=== PATIENT | female | born 1985 | race Caucasian/White ===

== ENCOUNTER 2020-06-26 18:47 | Outpatient (CLI) | payer OTHER | END 2020-06-27 11:12 | disposition home or self-care (01) | LOC: OBS/DEL 18:47 → OFIC 805 18:47 → OBS/DEL 06-27 02:03 | PROVIDERS: ATTEND Obstetrics & Gynecology | DX: O47.1 False labor at or after 37 completed weeks of gestation (principal); Z20.828 Contact with and (suspected) exposure to other viral communicable diseases ==